=== PATIENT | male | born 1970 | race Caucasian/White ===

== ENCOUNTER 2016-11-03 07:17 | Emergency (ER) | payer SELFPAY ==
[~2016-11-03] VITALS: Ht 185.4 cm; Wt 197.4 kg
[~2016-11-03 07:17] MED LIST: BACT800T5 PO; CRAN1CAP6 PO; LORTA5 PO; PUMP1CAP PO; TAB-TAB PO; TAMS0.4C67 PO
[2016-11-03 07:22] VITALS: BP 138/93; PULSE 100; RESP 16; TEMP 98.2; O2SAT 96
[2016-11-03] MEDS ORDERED: CRAN1CAP6 PO (07:34)
[2016-11-03] MEDS ORDERED: LIDOCAINE 1%/EPINEPHrine 1:100,000 SOLN 20 ML VIAL INFIL ONE (08:15)
[2016-11-03] MEDS ORDERED: BACT800T5 PO (08:29)
[2016-11-03] MEDS ORDERED: HYDR-3533 PO (08:29)
--- NOTE | 2016-11-03 08:29 | PD ---
HPI Chief Complaint: Skin Problem Time Seen by Provider: 07:56 Travel History International Travel<30 days: No Contact w/Intl Traveler<30days: No Traveled to known affect area: No History of Present Illness HPI 46-year-old man, morbidly obese, no other medical history, presents with redness swelling with purulent drainage to his right upper inner thigh. He states he had a sheet rash there. Over the past day or 2 it got more painful tender red and swollen. Started draining purulent drainage and having a bowel movement this morning. No fevers. No history of diabetes. No other complaints. History Past Medical History Medical History: Denies Significant Hx Social History Alcohol Use: No (20 years ago) Tobacco Use: No Allergies-Medications (Allergen,Severity, Reaction): Coded Allergies: No Known Allergies (Verified , 11/03/16) Reported Meds & Prescriptions Reported Meds & Active Scripts Active Reported Azo Cranbery Urinary Tract Health (Cranberry-Vitamin C) 250-60 Mg Cap 2 Cap PO DAILY Review of Systems Except as stated in HPI: all other systems reviewed are Neg Physical Exam Narrative GENERAL: Well-appearing 46 old man, no acute distress. SKIN: Warm and dry. CARDIOVASCULAR: Warm and well perfused. RESPIRATORY: Normal rate and effort. MUSCULOSKELETAL: Patient has an ulceration on his right upper inner thigh with surrounding erythema redness and tenderness. There is obvious purulent drainage coming from a couple small areas of the wound. NEUROLOGICAL: Awake and alert. No gross deficits. Data Data Last Documented VS Vital Signs Date Time Temp Pulse Resp B/P Pulse Ox O2 Delivery O2 Flow Rate FiO2 11/03/16 07:22 98.2 100 16 138/93 96 Orders Lidocai-Epi 1%-1:100,000 Inj (Xylocaine- (11/03/16 08:15) MDM Medical Decision Making Medical Screen Exam Complete: Yes Emergency Medical Condition: Yes Differential Diagnosis Abscess, abrasion, wound, other Narrative Course Medical decision making Is a 46-year-old man who presents to the emergency department with abscess in the right upper inner thigh, draining some but not adequately. It was I&D at the bedside. Packing was placed. Recommend for repeat evaluation in 2-3 days. Diagnosis Primary Impression: Abscess of right thigh Additional Instructions: Take antibiotics as prescribed. Use Naprosyn or ibuprofen as needed for pain. Use Lortab as needed for severe pain. Keep wound clean and dry. Wash wound twice daily with soap and water either with shower bath. Return to the emergency department 2-3 days for wound check and packing removal. Med/Other Pt SpecificInfo: Prescription(s) given Scripts Sulfamethoxazole-Trimethoprim (Bactrim DS)800-160 Mg Tab2 Tab PO BID 5 Days Ref 0 Prov:Satya Mendes MD 11/03/16 Hydrocodone-Acetaminophen (Lortab)5-325 Mg Tab1-2 Tab PO Q6H PRN (PAIN) #12 TAB Prov:Satya Mendes MD 11/03/16 Disposition: 01 DISCHARGE HOME Condition: Stable Satya Mendes MD Nov 03, 2016 08:29
== END 2016-11-03 08:41 | disposition home or self-care (01) ==
LOC: PHED 07:17
DX: L02.415 Cutaneous abscess of right lower limb (principal)
CPT/HCPCS: 10061; 86403; 87070

== ENCOUNTER 2016-11-07 06:51 | Emergency (ER) | payer SELFPAY ==
[~2016-11-07] VITALS: Ht 185.4 cm; Wt 198.0 kg
[~2016-11-07 06:51] MED LIST changes: +HYDR-3533 PO; -LORTA5 PO; -PUMP1CAP PO; -TAB-TAB PO; -TAMS0.4C67 PO
[2016-11-07 07:05] VITALS: BP 159/86; PULSE 100; RESP 18; TEMP 98.3; O2SAT 95
[2016-11-07] MEDS ORDERED: BACT800T5 PO (07:18)
--- NOTE | 2016-11-07 07:22 | PD ---
HPI Chief Complaint: Wound/Suture/Staple Re-Check Time Seen by Provider: 07:10 Travel History International Travel<30 days: No Contact w/Intl Traveler<30days: No Traveled to known affect area: No History of Present Illness HPI This patient presents for recheck of a right thigh abscess. It was incised and drained 4 days ago. He was given 5 days antibiotics and advised to recheck. He reports that he is doing okay. Normal drainage. No fever. Symptoms severity is mild PFSH Past Medical History Diminished Hearing: Yes Genitourinary: Yes Hypertension: Yes Kidney Stones: Yes Musculoskeletal: Yes ("ruptured disc in back", CHRONIC HIP AND BACK PAIN) Immunizations Current: Yes Past Surgical History Ear Surgery: Yes (tubes in ears) Tympanostomy Tube: Yes (tubes when 5-6 years old) Social History Alcohol Use: No (20 years ago) Tobacco Use: No Substance Use: No Allergies-Medications (Allergen,Severity, Reaction): Coded Allergies: No Known Allergies (Verified , 11/03/16) Reported Meds & Prescriptions Reported Meds & Active Scripts Active Bactrim DS (Sulfamethoxazole-Trimethoprim) 800-160 Mg Tab 2 Tab PO BID 5 Days Lortab (Hydrocodone-Acetaminophen) 5-325 Mg Tab 1-2 Tab PO Q6H PRN Reported Azo Cranbery Urinary Tract Health (Cranberry-Vitamin C) 250-60 Mg Cap 2 Cap PO DAILY Review of Systems General / Constitutional: No: Fever HENT: No: Headaches Cardiovascular: No: Chest Pain or Discomfort Physical Exam Narrative SKIN: Inspection shows no rash or ulcers. Palpation shows no induration or nodules. Psych: Normal mood and affect. Normal insight and judgment. Groin: I evaluated the I&D site. There is no residual packing, and most of fell out. Wound is a little inflamed. No active fluctuance. There is some surrounding erythema. MDM Medical Decision Making Medical Screen Exam Complete: Yes Emergency Medical Condition: Yes Medical Record Reviewed: Yes Differential Diagnosis Wound infection, abscess, cellulitis Narrative Course I have reviewed the patient's electronic medical record. Reviewed his visit from 4 days ago when he had incision and drainage Culture results are reviewed showing group B strep heavy growth I wrote him 5 more days of Bactrim Discussed wound care recommendations Diagnosis Primary Impression: Abscess of right thigh Additional Instructions: The patient was advised to follow up with their physician and return if they worsen. Med/Other Pt SpecificInfo: Prescription(s) given Scripts Sulfamethoxazole-Trimethoprim (Bactrim DS)800-160 Mg Tab2 Tab PO BID 5 Days Ref 0 Prov:Handy Crook MD 11/07/16 Disposition: 01 DISCHARGE HOME Condition: Stable Handy Crook MD Nov 07, 2016 07:22
== END 2016-11-07 07:33 | disposition home or self-care (01) ==
LOC: PHED 06:51
DX: L02.415 Cutaneous abscess of right lower limb (principal); B95.1 Streptococcus, group B, as the cause of diseases classified elsewhere
CPT/HCPCS: 99281

== ENCOUNTER 2017-04-26 17:45 | Emergency (ER) | payer OTHER ==
[~2017-04-26] VITALS: Ht 185.4 cm; Wt 194.0 kg
[2017-04-26 17:57] VITALS: BP 193/93; PULSE 123; RESP 20; TEMP 100; O2SAT 95
[2017-04-26 18:18] VITALS: TEMP 102.5
[2017-04-26] MEDS ORDERED: VANCOMYCIN INJ 2,500 MG in SODIUM CHLORID 0.9% 500 ML INJ 500 ML IV STA (18:26)
[2017-04-26] MEDS ORDERED: PIPERACIL-TAZO 4.5 GM PREMIX 100 ML IV STA (18:26)
[2017-04-26] MEDS ORDERED: LIDOCAINE HCL 1% 30 ML VIAL INFIL ONE (18:30)
[2017-04-26] MEDS ORDERED: ONDANSETRON HCL 4 MG/2 ML VIAL IV ONE (18:30)
--- NOTE | 2017-04-26 18:38 | PD ---
HPI Chief Complaint: Skin Problem Time Seen by Provider: 18:17 Travel History International Travel<30 days: No Contact w/Intl Traveler<30days: No Traveled to known affect area: No History of Present Illness HPI This 46-year-old male is complaining of an abscess in his left groin and his right groin. The area in the left groin has been there for several days and has been draining. The area on the right groin has developed today and has just started to drain. He has had some nausea. He does not have a history of diabetes. He has had abscesses in the groin before. He has a history of urethral stricture PFS Past Medical History Diminished Hearing: Yes Genitourinary: Yes Hypertension: Yes Kidney Stones: Yes Musculoskeletal: Yes ("ruptured disc in back", CHRONIC HIP AND BACK PAIN) Immunizations Current: Yes Influenza Vaccination: No Past Surgical History Ear Surgery: Yes (tubes in ears) Tympanostomy Tube: Yes (tubes when 5-6 years old) Social History Alcohol Use: No (20 years ago) Tobacco Use: No Substance Use: No Allergies-Medications (Allergen,Severity, Reaction): Coded Allergies: No Known Allergies (Verified , 04/26/17) Reported Meds & Prescriptions Reported Meds & Active Scripts Active Review of Systems General / Constitutional: Positive: Fever, Chills Eyes: No: Diploplia, Blurred Vision HENT: No: Headaches, Vertigo Cardiovascular: No: Chest Pain or Discomfort, Palpitations Respiratory: No: Cough, Shortness of Breath Gastrointestinal: Positive: Nausea, No: Vomiting, Diarrhea Genitourinary: Positive: Frequency Musculoskeletal: No: Myalgias, Arthralgias Skin: Positive Rash, Positive Lumps Neurologic: Positive: Weakness Hematologic/Lymphatic: No: Easy Bruising Physical Exam Narrative GENERAL: Morbidly obese male SKIN: Focused skin assessment warm/dry. There is an area of induration in the right groin small area of drainage. There is an ulcerated lesion in the left groin is draining some purulent material HEAD: Atraumatic. Normocephalic. EYES: Pupils equal and round. No scleral icterus. No injection or drainage. ENT: No nasal bleeding or discharge. Mucous membranes pink and moist. NECK: Trachea midline. No JVD. CARDIOVASCULAR: Regular rate and rhythm. No murmur appreciated. RESPIRATORY: No accessory muscle use. Clear to auscultation. Breath sounds equal bilaterally. GASTROINTESTINAL: Abdomen soft, non-tender, nondistended. Hepatic and splenic margins not palpable. MUSCULOSKELETAL: No obvious deformities. No clubbing. No cyanosis. No edema. NEUROLOGICAL: Awake and alert. No obvious cranial nerve deficits. Motor grossly within normal limits. Normal speech. PSYCHIATRIC: Appropriate mood and affect; insight and judgment normal. Data Data Last Documented VS Vital Signs Date Time Temp Pulse Resp B/P (MAP) Pulse Ox O2 Delivery O2 Flow Rate FiO2 04/26/17 19:55 18 04/26/17 18:18 102.5 04/26/17 17:57 123 95 Orders Orders Complete Blood Count With Diff (04/26/17 18:26) Comprehensive Metabolic Panel (04/26/17 18:) Lactic Acid Sepsis Protocol (04/26/17 18:26) Urinalysis - C+S If Indicated (04/26/17 18:26) Blood Culture (04/26/17 18:26) Wound Culture And Gram Stain (04/26/17 18:26) Blood Glucose (04/26/17 18:26) Ecg Monitoring (04/26/17 18:26) Iv Access Insert/Monitor (04/26/17 18:26) Oximetry (04/26/17 18:26) Oxygen Administration (04/26/17 18:26) Ondansetron Inj (Zofran Inj) (04/26/17 18:30) Piperacil-Tazo 4.5 Gm Premix (Zosyn 4.5 (04/26/17 18:26) Vancomycin Inj (Vancomycin Inj) (04/26/17 18:26) Lidocaine 1% Inj (Xylocaine 1% Inj) (04/26/17 18:30) Sodium Chlor 0.9% 1000 Ml Inj (Ns 1000 M (04/26/17 18:45) Sodium Chlor 0.9% 1000 Ml Inj (Ns 1000 M (04/26/17 18:45) Sodium Chlor 0.9% 1000 Ml Inj (Ns 1000 M (04/26/17 18:45) Acetaminophen (Tylenol) (04/26/17 19:15) Hydromorphone Pf Inj (Dilaudid Pf Inj) (04/26/17 19:15) Urine Culture (04/26/17 18:35) Labs Laboratory Tests Test 04/26/17 18:35 White Blood Count 16.9 TH/MM3 Red Blood Count 5.33 MIL/MM3 Hemoglobin 13.8 GM/DL Hematocrit 42.5 % Mean Corpuscular Volume 79.7 FL Mean Corpuscular Hemoglobin 25.9 PG Mean Corpuscular Hemoglobin Concent 32.5 % Red Cell Distribution Width 13.7 % Platelet Count 399 TH/MM3 Mean Platelet Volume 8.5 FL Neutrophils (%) (Auto) 78.3 % Lymphocytes (%) (Auto) 12.4 % Monocytes (%) (Auto) 7.0 % Eosinophils (%) (Auto) 0.7 % Basophils (%) (Auto) 1.6 % Neutrophils # (Auto) 13.2 TH/MM3 Lymphocytes # (Auto) 2.1 TH/MM3 Monocytes # (Auto) 1.2 TH/MM3 Eosinophils # (Auto) 0.1 TH/MM3 Basophils # (Auto) 0.3 TH/MM3 CBC Comment AUTO DIFF Differential Comment AUTO DIFF CONFIRMED Platelet Estimate NORMAL Platelet Morphology Comment NORMAL Urine Collection Type CATH Urine Color YELLOW Urine Turbidity CLEAR Urine pH 6.0 Urine Specific [place] 1.032 Urine Protein 30 mg/dL Urine Glucose (UA) 500 mg/dL Urine Ketones 40 mg/dL Urine Occult Blood SMALL Urine Nitrite NEG Urine Bilirubin NEG Urine Leukocyte Esterase NEG Urine RBC 0-3 /hpf Urine WBC 0-2 /hpf Urine Bacteria RARE /hpf Microscopic Urinalysis Comment CATH-CULTURE IND Urine Collection Time 1825 Blood Urea Nitrogen 11 MG/DL Creatinine 0.97 MG/DL Random Glucose 281 MG/DL Total Protein 7.6 GM/DL Albumin 3.1 GM/DL Calcium Level 9.1 MG/DL Alkaline Phosphatase 68 U/L Aspartate Amino Transf (AST/SGOT) 13 U/L Alanine Aminotransferase (ALT/SGPT) 22 U/L Total Bilirubin 0.7 MG/DL Sodium Level 132 MEQ/L Potassium Level 3.7 MEQ/L Chloride Level 99 MEQ/L Carbon Dioxide Level 23.4 MEQ/L Anion Gap 10 MEQ/L Estimat Glomerular Filtration Rate 84 ML/MIN Lactic Acid Level 1.5 mmol/L [facility] Medical Decision Making Medical Screen Exam Complete: Yes Emergency Medical Condition: Yes Medical Record Reviewed: Yes Differential Diagnosis Differential includes abscess, sepsis, Narrative Course The white count is elevated at 16,000. An I&D was done. He was given an initial dose of Zosyn and vancomycin. Lactate is normal. Blood sugar is elevated. I recommended to the patient that he should be admitted for IV antibiotics however the patient is insistent on going home. I have urged him to return if he is not. We'll be started on clindamycin and Flagyl Procedures Procedure Narrative Procedure was explained to the patient and he was agreeable to proceed. The abscess in the right groin anesthetized sent lidocaine. An 0.5 cm incision was made at drainage of some purulent material. Quarter-inch packing was inserted into the wound. The patient tolerated the procedure well Diagnosis Primary Impression: Abscess of right thigh Scripts Metronidazole (Flagyl) 500 Mg Tab 500 MG PO TID for Infection for 30 Days, TAB 0 Refills Prov: Robbin Nieves MD 04/26/17 Clindamycin (Clindamycin) 150 Mg Cap 450 MG PO Q6H for Infection for 10 Days, CAP 0 Refills Prov: Robbin Nieves MD 04/26/17 Disposition: 01 DISCHARGE HOME Condition: Stable Robbin Nieves MD Apr 26, 2017 18:38
[2017-04-26] MEDS ORDERED: SODIUM CHLOR 0.9% 1000 ML INJ 1,000 ML IV ONE ×3 (18:45)
[2017-04-26 18:50] LABS: AUTOMATED NEUTROPHIL # 13.2 TH/MM3 (1.8-7.7); BASOPHIL # 0.3 TH/MM3 (0-0.2); BASOPHIL % 1.6 % (0.0-2.0); EOSINOPHIL # 0.1 TH/MM3 (0-0.4); EOSINOPHIL % 0.7 % (0.0-4.0); HEMATOCRIT 42.5 % (39.0-51.0); LYMPH % 12.4 % (9.0-44.0); LYMPHOCYTE # 2.1 TH/MM3 (1.0-4.8); MEAN CELL VOLUME 79.7 FL (80.0-100.0); MEAN CORPUSCULAR HEMOGLOBIN 25.9 PG (27.0-34.0); MEAN CORPUSCULAR HGB CONC 32.5 % (32.0-36.0); NEUT % 78.3 % (16.0-70.0); PLATELET COUNT 399 TH/MM3 (150-450); RED BLOOD COUNT 5.33 MIL/MM3 (4.50-5.90); RED CELL DISTRIBUTION WIDTH 13.7 % (11.6-17.2); WHITE BLOOD COUNT 16.9 TH/MM3 (4.0-11.0)
[2017-04-26 18:54] LABS: HEMO FLAGS AUTO DIFF
[2017-04-26 19:00] VITALS: BP 124/65; PULSE 102; RESP 18; TEMP 100; O2SAT 94
[2017-04-26 19:02] LABS: BLOOD, URINE SMALL (NEG); CHLORIDE 99 MEQ/L (98-107); GLUCOSE,URINE 500 mg/dL (NEG); KETONE, URINE 40 mg/dL (NEG); NITRITE,URINE NEG (NEG); POTASSIUM 3.7 MEQ/L (3.5-5.1); SODIUM (NA) 132 MEQ/L (136-145)
[2017-04-26 19:06] LABS: ANION GAP 10 MEQ/L (5-15); BACTERIA, URINE RARE /hpf; BICARBONATE 23.4 MEQ/L (21.0-32.0); BLOOD UREA NITROGEN 11 MG/DL (7-18); METHOD OF COLLECTION CATH; RBC, URINE 0-3 /hpf (0-3); URINE COLOR YELLOW (YELLW/STRAW); WBC, URINE 0-2 /hpf (0-5)
[2017-04-26 19:07] LABS: COMMENT (UR) CATH-CULTURE IND; CULTURE IF INDICATED CATH CULTURE IND
[2017-04-26 19:09] LABS: ALT (GPT) 22 U/L (12-78); AST (GOT) 13 U/L (15-37); GLOMERULAR FILTRATION RATE 84 ML/MIN (>89)
[2017-04-26 19:11] LABS: TOTAL BILIRUBIN ADULT 0.7 MG/DL (0.2-1.0)
[2017-04-26 19:12] LABS: ALKALINE PHOSPHATASE 68 U/L (45-117)
[2017-04-26 19:14] LABS: PLATELET ESTIMATE SMEAR NORMAL (NORMAL); PLATELET MORPHOLOGY NORMAL (NORMAL); SCAN/DIFF AUTO DIFF CONFIRMED
[2017-04-26] MEDS ORDERED: ACETAMINOPHEN 500 MG CPLT PO ONE (19:15)
[2017-04-26] MEDS ORDERED: HYDROmorphone HCL PF 1 MG/ML VIAL IV PUSH ONE (19:15)
[2017-04-26] MEDS ORDERED: METR-1 PO (20:37)
[2017-04-26] MEDS ORDERED: CLIN1CAP5 PO (20:37)
[2017-04-26 21:00] VITALS: BP 140/67; PULSE 88; RESP 20; TEMP 98.2; O2SAT 93
[2017-04-26 22:38] VITALS: BP 137/58; TEMP 98.2
== END 2017-04-26 22:48 | disposition home or self-care (01) ==
LOC: PHED 17:45
DX: L02.415 Cutaneous abscess of right lower limb (principal); I10 Essential (primary) hypertension
CPT/HCPCS: 10060; 80053; 81001; 83605; 85025; 86403; 87040; 87070; 87086; 87186; 96365; 96366; 96375; 99284; J1170; J2405; J2543; J3370; J7030; J7040; 87205

== ENCOUNTER 2017-05-06 18:29 | Emergency (ER) | payer OTHER ==
[~2017-05-06] VITALS: Ht 185.4 cm; Wt 192.3 kg
[~2017-05-06 18:29] MED LIST changes: -BACT800T5 PO; +CLIN1CAP5 PO; -CRAN1CAP6 PO; -HYDR-3533 PO; +METR-1 PO
[2017-05-06 18:39] VITALS: BP 139/84; PULSE 106; RESP 18; TEMP 98.6; O2SAT 95
[2017-05-06] MEDS ORDERED: CLIN1CAP5 PO (20:00)
[2017-05-06] MEDS ORDERED: METR-1 PO (20:00)
--- NOTE | 2017-05-06 20:06 | PD ---
HPI Chief Complaint: Skin Problem Time Seen by Provider: 19:28 Travel History International Travel<30 days: No Contact w/Intl Traveler<30days: No Traveled to known affect area: No History of Present Illness HPI 46-year-old male presents emergency department for reevaluation of bilateral groin abscess. Patient was seen 9 days ago in the emergency department where he had incision and drainage of abscesses in the groin region. He reports the areas have reduced in size significantly. He denies fever or chills. He denies increasing pain at the site. He was concerned that his antibiotics would run out tomorrow and he still had some induration on the right groin. PFSH Past Medical History Diminished Hearing: Yes Genitourinary: Yes Hypertension: Yes Kidney Stones: Yes Musculoskeletal: Yes ("ruptured disc in back", CHRONIC HIP AND BACK PAIN) Immunizations Current: Yes Influenza Vaccination: No ?: Not Past Surgical History Ear Surgery: Yes (tubes in ears) Tympanostomy Tube: Yes (tubes when 5-6 years old) Social History Alcohol Use: No (20 years ago) Tobacco Use: No Substance Use: No Allergies-Medications (Allergen,Severity, Reaction): Coded Allergies: No Known Allergies (Verified , 05/06/17) Reported Meds & Prescriptions Reported Meds & Active Scripts Active Flagyl (Metronidazole) 500 Mg Tab 500 Mg PO TID 5 Days Clindamycin (Clindamycin HCl) 150 Mg Cap 450 Mg PO Q6H 5 Days Review of Systems Except as stated in HPI: all other systems reviewed are Neg General / Constitutional: No: Fever Physical Exam Narrative GENERAL: Well-nourished, well-developed patient. SKIN: Focused skin assessment warm/dry. 7 cm indurated area right groin and there is no fluctuance or surrounding cellulitis. There is no drainage. HEAD: Normocephalic. EYES: No scleral icterus. No injection or drainage. NECK: Supple, trachea midline. No JVD or lymphadenopathy. CARDIOVASCULAR: Regular rate and rhythm without murmurs, gallops, or rubs. RESPIRATORY: Breath sounds equal bilaterally. No accessory muscle use. GASTROINTESTINAL: Abdomen soft, non-tender, nondistended. MUSCULOSKELETAL: No cyanosis, or edema. Data Data Last Documented VS Vital Signs Date Time Temp Pulse Resp B/P (MAP) Pulse Ox O2 Delivery O2 Flow Rate FiO2 05/06/17 18:39 98.6 106 18 139/84 (054) 95 MDM Medical Decision Making Medical Screen Exam Complete: Yes Emergency Medical Condition: Yes Differential Diagnosis Abscess, cellulitis, wound recheck Narrative Course 46-year-old male presents emergency department for reevaluation of bilateral groin abscess. Patient was seen 9 days ago in the emergency department where he had incision and drainage of 2 abscesses in the groin region. He reports the areas have reduced in size significantly. He denies fever or chills. He was concerned that he is antibiotics were going to and tomorrow and he still had some induration on the right groin. On exam patient has a healing abscess that does feel indurated without fluctuance patient will be given an additional 5 more days of current antibiotics. Diagnosis Primary Impression: Abscess of right thigh Referrals: Primary Care Physician Additional Instructions: Take the antibiotics as prescribed. Follow-up with your doctor for recheck. Scripts Metronidazole (Flagyl) 500 Mg Tab 500 MG PO TID for Infection for 5 Days, TAB 0 Refills Prov: Miranda Holloway 05/06/17 Clindamycin (Clindamycin) 150 Mg Cap 450 MG PO Q6H for Infection for 5 Days, CAP 0 Refills Prov: Miranda Holloway 05/06/17 Disposition: 01 DISCHARGE HOME Condition: Stable Miranda Holloway May 06, 2017 20:06
== END 2017-05-06 20:15 | disposition home or self-care (01) ==
LOC: PHEFT 18:29
DX: L02.214 Cutaneous abscess of groin (principal); I10 Essential (primary) hypertension; H91.90 Unspecified hearing loss, unspecified ear; Z87.448 Personal history of other diseases of urinary system; Z87.39 Personal history of other diseases of the musculoskeletal system and connective tissue
CPT/HCPCS: 99284

== ENCOUNTER 2017-05-11 18:10 | Emergency (ER) | payer OTHER ==
[~2017-05-11] VITALS: Ht 185.4 cm; Wt 191.6 kg
[2017-05-11] MEDS ORDERED: IOHEXOL 350 MG/ML 10 ML VIAL (for RAD DIAG) IVCONTRAST ONE (18:11)
[2017-05-11 18:37] VITALS: BP 162/99; PULSE 92; RESP 18; TEMP 97.8
[2017-05-11 19:27] VITALS: BP 149/84; PULSE 95; RESP 18; O2SAT 96
[2017-05-11] MEDS ORDERED: VANCOMYCIN INJ 1,000 MG in SODIUM CHLOR 0.9% 250 ML INJ 250 ML IV ONE (19:30)
[2017-05-11 19:56] LABS: AUTOMATED NEUTROPHIL # 8.6 TH/MM3 (1.8-7.7); BASOPHIL # 0.1 TH/MM3 (0-0.2); EOSINOPHIL # 0.4 TH/MM3 (0-0.4); EOSINOPHIL % 3.3 % (0.0-4.0); HEMATOCRIT 43.3 % (39.0-51.0); HEMO FLAGS DIFF FINAL; LYMPH % 18.5 % (9.0-44.0); LYMPHOCYTE # 2.2 TH/MM3 (1.0-4.8); MEAN CELL VOLUME 78.3 FL (80.0-100.0); MEAN CORPUSCULAR HEMOGLOBIN 25.2 PG (27.0-34.0); MEAN CORPUSCULAR HGB CONC 32.2 % (32.0-36.0); MONO % 5.3 % (0.0-8.0); NEUT % 71.9 % (16.0-70.0); PLATELET COUNT 416 TH/MM3 (150-450); RED BLOOD COUNT 5.54 MIL/MM3 (4.50-5.90); RED CELL DISTRIBUTION WIDTH 13.6 % (11.6-17.2); WHITE BLOOD COUNT 11.9 TH/MM3 (4.0-11.0)
[2017-05-11 20:04] LABS: POTASSIUM 3.9 MEQ/L (3.5-5.1)
[2017-05-11 20:08] LABS: BICARBONATE 25.5 MEQ/L (21.0-32.0)
[2017-05-11] MEDS ORDERED: SODIUM CHLOR 0.9% 1000 ML INJ 1,000 ML IV ONE (20:30)
[2017-05-11] MEDS ORDERED: INSULIN HUMAN REGULAR 1,000 UNITS/10 ML VIAL IV PUSH ONE (20:30)
--- NOTE | 2017-05-11 20:42 | RADRPT ---
EXAM DATE/TIME: 05/11/2017 20:06 [facility] COMPARISON: No previous studies available for comparison. INDICATIONS : Abscess in groin area. Patient on antibiotics for 1 week. Follow up. IV CONTRAST: 94 cc Omnipaque 350 (iohexol) IV ORAL CONTRAST: No oral contrast ingested. RADIATION DOSE: 31.20 CTDIvol (mGy) ; Patient body habitus MEDICAL HISTORY : Hypertension. SURGICAL HISTORY : Cholecystectomy. Bilateral groin abscess drainages last week. ENCOUNTER: Subsequent ACUITY: 1 week PAIN SCALE: 0/10 LOCATION: Right pelvis TECHNIQUE: Volumetric scanning of the pelvis was performed. Using automated exposure control and adjustment of t he mA and/or kV according to patient size, radiation dose was kept as low as reasonably achievable to obtain optimal diagnostic quality images. DICOM format image data is available electronically for review and comparison. FINDINGS: BOWEL/MESENTERY: The visualized small and large bowel demonstrate no acute abnormality. There is no free fluid. BLADDER: There is no wall thickening or mass. RETROPERITONEUM: There is no aneurysm or lymphadenopathy. REPRODUCTIVE: Within normal limits. INGUINAL: There is no lymphadenopathy or hernia. MUSCULOSKELETAL: Within normal limits for patient age. SOFT TISSUE: The patient has a large panniculus. On the right side of the panniculus, there is a subcutaneous defe ct which appears to communicate with the skin surface. This is associated with some surrounding infla mmatory stranding in the subcutaneous fat. Findings are characteristic of the reported abscess which appears to be spontaneously draining to the skin surface. CONCLUSION: 1. Small, 2 cm air-filled abscess with regional inflammatory changes on the right side of the abdomin al panniculus as detailed above. There is no drainable fluid at this time. 2. Otherwise, pelvic viscera is intact. Dewey Johnston MD on May 11, 2017 at 20:33 Board Certified Radiologist. This report was verified electronically.
[2017-05-11] MEDS ORDERED: DOXY100C PO (21:56)
[2017-05-11] MEDS ORDERED: METF500T PO (21:56)
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
[2017-05-11 22:08] VITALS: BP 163/102
== END 2017-05-11 22:28 | disposition home or self-care (01) ==
LOC: PHED 18:10
DX: L02.415 Cutaneous abscess of right lower limb (principal); I10 Essential (primary) hypertension; E11.9 Type 2 diabetes mellitus without complications
CPT/HCPCS: 72193; 80048; 85025; 96361; 96365; 96375; 99285; J1815; J3370; J7030; J7050; Q9967